=== PATIENT | male | born 1955 | race Caucasian/White ===

== ENCOUNTER → 2017-04-30 | Outpatient (CLI) | payer OTHER ==
[~2017-04-30] MED LIST: ADENOSINE 6 MG/2 ML ONE; DILT180C PO; FLUT1DIS3 INH; IPRA4AER PO; LISINOPRIL PO; METF500T9 PO; MONT10TA6 PO; MULT-6 PO; OMEP-110 PO; ROSU10TA PO
== END | disposition home or self-care (01) ==
LOC: CVU 14:59
PROVIDERS: ATTEND Internal Medicine Cardiovascular Disease
DX: I08.1 Rheumatic disorders of both mitral and tricuspid valves (principal); I10 Essential (primary) hypertension; E78.5 Hyperlipidemia, unspecified; E11.9 Type 2 diabetes mellitus without complications
CPT/HCPCS: 93306

== ENCOUNTER 2017-05-05 08:08 | Observation (INO) | payer OTHER ==
[2017-05-04 15:25] VITALS: BP 167/99
[2017-05-04 15:44] LABS: HEMATOCRIT 45.6 % (39.2-51.8); HEMOGLOBIN 15.6 g/dL (13.7-18.0); WHITE BLOOD COUNT 7.1 x10^3/uL (3.4-10)
[2017-05-04 15:47] LABS: ASPARTATE AMINO TRANSFERASE 33 U/L (15-37); BLOOD UREA NITROGEN 21 mg/dL (7-18)
[~2017-05-05] VITALS: Ht 180.3 cm; Wt 105.5 kg
[~2017-05-05 08:08] MED LIST changes: -ADENOSINE 6 MG/2 ML ONE; -DILT180C PO; -MULT-6 PO; -OMEP-110 PO; -ROSU10TA PO
[2017-05-05] MEDS ORDERED: SODIUM CHLORIDE 0.9% 1,000 ML IV SCH (09:00)
[2017-05-05] MEDS ORDERED: MULT-6 PO (09:33)
[2017-05-05] MEDS ORDERED: OMEP-110 PO (09:33)
[2017-05-05] MEDS ORDERED: DILT180C PO (09:33)
[2017-05-05] MEDS ORDERED: ROSU10TA PO (09:33)
[2017-05-05] MEDS ORDERED: LIDOCAINE 2%, 20ML ONE (10:36)
[2017-05-05] MEDS ORDERED: ISOPROTERENOL 0.2MG/ML, 5ML ONE (10:36)
[2017-05-05] MEDS ORDERED: FENTANYL PF 250 MCG/5ML ONE (10:42)
[2017-05-05] MEDS ORDERED: MIDAZOLAM 1 MG/ML, 5ML ONE (10:42)
[2017-05-05] MEDS ORDERED: TEMPLATE NON-FORMULARY MED. (Ipratropium/Albuterol Sulfate (Combivent Respimat Inhal Spray PO PRN (13:00)
[2017-05-05] MEDS ORDERED: ACETAMINOPHEN 325 MG TABLET PO PRN ×2 (13:00→13:30)
[2017-05-05] MEDS ORDERED: OMEPRAZOLE 20 MG CAPSULE.DR PO PRN (13:00)
[2017-05-05] MEDS ORDERED: MIDAZOLAM 1 MG/ML, 2ML IV PRN (13:30)
[2017-05-05] MEDS ORDERED: OXYcodone 5 MG/5 ML ORAL.SOL UDC PO PRN (13:30)
[2017-05-05] MEDS ORDERED: EPHEDRINE 50 MG/ML, 1ML IVPush PRN (13:30)
[2017-05-05] MEDS ORDERED: HYDROmorphone 1 MG/ML, 1ML IV PRN (13:30)
[2017-05-05] MEDS ORDERED: ONDANSETRON 2MG/ML, 2ML IVPush PRN (13:30)
[2017-05-05] MEDS ORDERED: LABETALOL 5MG/ML, 20ML IV PRN (13:30)
[2017-05-05] MEDS ORDERED: LORazepam 2 MG/ML, 1ML IVPush PRN (13:30)
[2017-05-05] MEDS ORDERED: PROMETHAZINE 25 MG/ML, 1ML IV PRN (13:30)
[2017-05-05] MEDS ORDERED: FENTANYL PF 100 MCG/2ML IV PRN (13:30)
[2017-05-05] MEDS ORDERED: MEPERIDINE/PF 25MG/0.5ML IVPush PRN (13:30)
[2017-05-05] MEDS ORDERED: DEXAMETHASONE 4 MG/ML, 1ML ONE (15:18)
[2017-05-05] MEDS ORDERED: ONDANSETRON 2MG/ML, 2ML ONE (15:18)
[2017-05-05] MEDS ORDERED: PROPOFOL 10 MG/ML, 20ML ONE (15:18)
[2017-05-05] MEDS ORDERED: SUCCINYLCHOLINE 20 MG/ML, 10ML ONE (15:18)
[2017-05-05] MEDS ORDERED: LIDOCAINE 4%, 4 ML SYR/CANN TP ONE (15:18)
[2017-05-05] MEDS ORDERED: TEMPLATE NON-FORMULARY MED. (Fluticasone/Salmeterol** (Advair 250-50 Diskus**) 1 PUFF) INH SCH (21:00)
[2017-05-05] MEDS ORDERED: metFORMIN XR 500 MG TAB.ER.24H PO SCH (21:00)
[2017-05-05] MEDS ORDERED: TEMPLATE NON-FORMULARY MED. (Rosuvastatin Calcium** (Crestor**) 10 MG) PO SCH (21:00)
[2017-05-06] MEDS ORDERED: MULTIVITAMIN 1 TABLET PO SCH (09:00)
[2017-05-06] MEDS ORDERED: MONTELUKAST 10 MG TABLET PO SCH (09:00)
== END 2017-05-05 17:49 | disposition home or self-care (01) ==
LOC: CACL 08:08 → ORIP 12:59 → 5SO 14:21
PROVIDERS: ADMIT Internal Medicine Cardiovascular Disease; ATTEND Internal Medicine Cardiovascular Disease
DX: I47.1 Supraventricular tachycardia (principal); I10 Essential (primary) hypertension; J45.909 Unspecified asthma, uncomplicated; E11.9 Type 2 diabetes mellitus without complications
CPT/HCPCS: 36415; 71020; 80053; 85025; 85610; 85730; 93613; 93621; 93623; 93653; C1730; C1766; C1894; C2630; G0378; J0153; J0330; J1100; J2250; J2405; J2704; J3010; J3490